=== PATIENT | male | born 1935 | race Caucasian/White ===

== ENCOUNTER → 2019-01-09 | Outpatient (CLI) | payer MEDICARE, OTHER ==
[~2019-01-09] MED LIST: ADV500 IH; ALLO100T PO; AREDS EYE VITAMIN PO; ASPI-555 PO; CALC600T12 PO; FISH1CAP49 PO; FLUT16H NS; FURO20TA4 PO; METO-391 PO; MONT10TA24 PO; PRAV40TA3 PO; TERA5CAP4 PO; TIMO5DRO7 OP; WARF4TAB72 PO; [UNRECOGNIZED DRUG - CODE] PO
== END | disposition home or self-care (01) ==
LOC: SHCH 08:42
PROVIDERS: ATTEND Internal Medicine Cardiovascular Disease
DX: I08.3 Combined rheumatic disorders of mitral, aortic and tricuspid valves (principal); I48.2 Chronic atrial fibrillation; Z95.0 Presence of cardiac pacemaker
CPT/HCPCS: 93306

== ENCOUNTER → 2019-01-17 | Outpatient (CLI) | payer MEDICARE, OTHER | END | disposition home or self-care (01) | LOC: SHCH 08:27 | PROVIDERS: ATTEND Internal Medicine Cardiovascular Disease | DX: I87.2 Venous insufficiency (chronic) (peripheral) (principal) | CPT/HCPCS: 93970 ==

== ENCOUNTER → 2019-02-17 | Outpatient (CLI) | payer MEDICARE, OTHER | END | disposition home or self-care (01) | LOC: SHCH 13:19 | PROVIDERS: ATTEND Internal Medicine Cardiovascular Disease | DX: I82.812 Embolism and thrombosis of superficial veins of left lower extremity (principal) | CPT/HCPCS: 93971 ==

== ENCOUNTER → 2019-03-24 | Outpatient (CLI) | payer MEDICARE | END | disposition home or self-care (01) | LOC: RAH 13:01 | PROVIDERS: ATTEND Urology | DX: N28.1 Cyst of kidney, acquired (principal); N28.89 Other specified disorders of kidney and ureter | CPT/HCPCS: 76770 ==

== ENCOUNTER → 2019-05-19 | Outpatient (CLI) | payer MEDICARE | END | disposition home or self-care (01) | LOC: RAH 10:07 | PROVIDERS: ATTEND Urology | DX: N20.0 Calculus of kidney (principal); K80.20 Calculus of gallbladder without cholecystitis without obstruction; N28.1 Cyst of kidney, acquired; M51.36 Other intervertebral disc degeneration, lumbar region | CPT/HCPCS: 74176 ==

== ENCOUNTER 2019-07-29 19:33 | Inpatient (IN) | payer MEDICARE ==
[~2019-07-29] VITALS: Ht 188 cm; Wt 140.6 kg
[2019-07-29 20:04] LABS: BASOPHILS % (AUTO) 1.4 % (0.0-5.0); EOSINOPHILS % (AUTO) 4.8 % (0.0-8.0); HEMATOCRIT 21.5 % (42-54); LYMPHOCYTES % (AUTO) 22.8 % (21.0-51.0); MEAN CORPUSCULAR HEMOGLOBIN 25.4 pg (27.0-33.0); MEAN CORPUSCULAR VOLUME 79.2 fL (79-99); MONOCYTES % (AUTO) 10.6 % (3.0-13.0); NEUTROPHILS % (AUTO) 60.4 % (40.0-77.0); NUCLEATED RED BLOOD CELLS 0.1 % (0.0-0.19); PLATELET COUNT (AUTO) 199 K/uL (130-400); RED BLOOD CELL COUNT(AUTO) 2.71 MIL/uL (4.50-6.20); RED CELL DISTRIBUTION WIDTH 17.4 % (11.0-15.5); WHITE BLOOD COUNT (AUTO) 4.2 K/uL (4.8-10.8)
[2019-07-29 20:15] LABS: CREATININE 2.3 mg/dL (0.5-1.5); POTASSIUM 4.4 mmol/L (3.5-5.1)
[2019-07-29 20:19] LABS: BILIRUBIN,DIRECT 0.1 mg/dL (0.0-0.3); BILIRUBIN,TOTAL 0.5 mg/dL (0.2-1.0); TOTAL PROTEIN, SERUM 6.5 g/dL (6.0-8.3)
[2019-07-29 20:26] LABS: APPEARANCE,URINE Cloudy (CLEAR); BILIRUBIN,URINE Negative (NEGATIVE); COLOR,URINE Yellow (YELLOW); GLUCOSE, URINE (UA) Negative (NEGATIVE); KETONES,URINE Negative (NEGATIVE); LEUKOCYTE ESTERASE ,URINE Large (NEGATIVE); NITRATE,URINE Positive (NEGATIVE); OCCULT BLOOD,URINE Moderate (NEGATIVE); PH,URINE 5.5 (5.0-8.0); PROTEIN,URINE Negative (NEGATIVE); UROBILINOGEN,URINE 0.2 mg/dL (0.2-1.0)
[2019-07-29 20:27] LABS: INR 1.82 (0.85-1.15); PARTIAL THROMBOPLASTIN TIME 31.6 SEC (26.3-35.5); PROTHROMBIN TIME 18.7 SEC (9.6-11.6)
[2019-07-29 20:30] LABS: B-TYPE NATRIURETIC PEPTIDE 132 pg/mL (0-100)
[2019-07-29 20:33] LABS: BACTERIA,URINE Few /HPF (None Seen); WBC,URINE 26-50 /HPF (0-1)
[2019-07-29 20:34] LABS: SQUAMOUS EPITHELIAL CELL,UR Few /HPF (0-2)
[2019-07-29] MEDS: CEFTRIAXONE SODIUM 1 GM IVP SCH (21:30)
[2019-07-29] MEDS: SODIUM CHLORIDE 0.9% 1000ML 1,000 ML IV SCH (21:30)
[2019-07-29] MEDS: PANTOPRAZOLE 40 MG/VIAL IVP SCH (21:30)
[2019-07-30] VITALS (18 sets, daily range): BP systolic 94–169; BP diastolic 50–77
[2019-07-30] MEDS ORDERED: SODIUM CHLORIDE 0.9% 1000ML 1,000 ML IV ONE (00:53)
[2019-07-30] MEDS ORDERED: CEFTRIAXONE SODIUM 1 GM ONE (00:54)
[2019-07-30] MEDS ORDERED: SODIUM CHLORIDE 0.9% 250 ML IV ONE ×2 (03:31→09:34)
[2019-07-30] MEDS ORDERED: DOXA8TAB81 PO (05:25)
[2019-07-30 07:38] LABS: BASOPHILS % (AUTO) 2.8 % (0.0-5.0); EOSINOPHILS % (AUTO) 5.7 % (0.0-8.0); HEMATOCRIT 23.7 % (42-54); LYMPHOCYTES % (AUTO) 22.7 % (21.0-51.0); MEAN CORPUSCULAR HEMOGLOBIN 25.4 pg (27.0-33.0); MEAN CORPUSCULAR HGB CONC 31.8 g/dL (32.0-36.0); MEAN CORPUSCULAR VOLUME 79.8 fL (79-99); MONOCYTES % (AUTO) 12.5 % (3.0-13.0); NEUTROPHILS % (AUTO) 56.3 % (40.0-77.0); PLATELET COUNT (AUTO) 201 K/uL (130-400); RED BLOOD CELL COUNT(AUTO) 2.97 MIL/uL (4.50-6.20); RED CELL DISTRIBUTION WIDTH 17.5 % (11.0-15.5)
[2019-07-30 07:54] LABS: ALBUMIN 2.9 g/dL (3.5-5.0); BILIRUBIN,TOTAL 0.6 mg/dL (0.2-1.0); POTASSIUM 4.2 mmol/L (3.5-5.1); TOTAL PROTEIN, SERUM 6.4 g/dL (6.0-8.3)
--- NOTE | 2019-07-30 08:22 | NUR ---
Dr. Romano made aware of Hgb: 7.5, post 1unit of PRBC. Stated to give patient 2units of FFP, and schedule for EGD later today.
[2019-07-30] MEDS ORDERED: FLU VACC QS2019-20 36MOS UP/PF 60 MCG/0.5 ML ML IM ONE (09:00)
[2019-07-30] MEDS ORDERED: PNEUMOCOCCAL VACCINE POLYVALENT 0.5 ML/VIAL [PPV] IM ONE (09:00)
[2019-07-30] MEDS ORDERED: FLU VACC QS2019-20 36MOS UP/PF 60 MCG/0.5 ML ML IM SCH (09:00)
[2019-07-30] MEDS: PANTOPRAZOLE 40 MG/VIAL IVP SCH ×2 (10:19→21:39)
[2019-07-30] MEDS ORDERED: PNEUMOCOCCAL VACCINE POLYVALENT 0.5 ML/VIAL [PPV] IM SCH (11:00)
--- NOTE | 2019-07-30 11:30 | NUR ---
TRANSFER PT RECEIVED FROM ICU RM 208. TRANSFERRED BY CN & PCP. TOLERATED TRANSFER WELL. SPOUSE @ BEDSIDE. A/O X 3. NO SOB. NO DISTRESS NOTED. O2 NC @ 3L. DENIES CHEST PAIN OR DISCOMFORT. DENIES PALPITATIONS. TELE: PACED. DENIES N/V AND/OR DIARRHEA. DIET ORDERED. EGD RESCHEDULED FOR TOMORROW. CARDIA CLEARANCE FOR EGD GIVEN BY DR RICKY YEAGER. ORIENTED TO . INSTRUCTED TO CALL FOR ASSISTANCE. CALL MALENA W/IN REACH.
--- NOTE | 2019-07-30 12:46 | NUR ---
DC PLAN VISITED WITH PATIENT. PATIENT LIVES WITH SPOUSE. INDEPENDENT ABLE TO PERFORM ADL'S. PATIENT HAS NO SERVICES. PATIENT HAS A WALKER, GAYATRI, 02. FEELS SAFE TO RETURN HOME. Addendum: 07/30/19 at 1302 by JESÚS COUGHLIN RN CM Amended: Links added.
[2019-07-30] MEDS: CEFTRIAXONE SODIUM 1 GM IVP SCH (21:00)
[2019-07-30 21:27] LABS: HEMATOCRIT 21.4 % (42-54)
[2019-07-31] VITALS (19 sets, daily range): BP systolic 94–150; BP diastolic 51–84
[2019-07-31 04:26] LABS: BASOPHILS % (AUTO) 1.1 % (0.0-5.0); EOSINOPHILS % (AUTO) 4.8 % (0.0-8.0); HEMATOCRIT 24.3 % (42-54); LYMPHOCYTES % (AUTO) 20.4 % (21.0-51.0); MEAN CORPUSCULAR HEMOGLOBIN 25.7 pg (27.0-33.0); MEAN CORPUSCULAR HGB CONC 32.4 g/dL (32.0-36.0); MEAN CORPUSCULAR VOLUME 79.3 fL (79-99); MONOCYTES % (AUTO) 11.9 % (3.0-13.0); NEUTROPHILS % (AUTO) 61.8 % (40.0-77.0); NUCLEATED RED BLOOD CELLS 0.1 % (0.0-0.19); PLATELET COUNT (AUTO) 212 K/uL (130-400); RED BLOOD CELL COUNT(AUTO) 3.07 MIL/uL (4.50-6.20); RED CELL DISTRIBUTION WIDTH 17.5 % (11.0-15.5); WHITE BLOOD COUNT (AUTO) 4.4 K/uL (4.8-10.8)
[2019-07-31 04:38] LABS: INR 1.42 (0.85-1.15); PARTIAL THROMBOPLASTIN TIME 27.4 SEC (26.3-35.5); PROTHROMBIN TIME 14.4 SEC (9.6-11.6)
[2019-07-31 04:46] LABS: CREATININE 2.3 mg/dL (0.5-1.5); POTASSIUM 4.5 mmol/L (3.5-5.1)
--- NOTE | 2019-07-31 07:45 | NUR ---
AM ASSESSMENT PT SITTING IN BED, WATCHING TV. A/O X 3. SOB ON EXERTION. NO DISTRESS NOTED. O2 NC @ 3L. DENIES CHEST PAIN OR DISCOMFORT. DENIES PALPITATIONS. TELE: PACED. DENIES N/V AND/OR DIARRHEA. NPO STATUS REINFORCED. PT TOHAVE EGD BY DR WATTS TODAY. BR W/DIXONP. INSTRUCTED TO CALL FOR ASSISTANCE. CALL MALENA W/IN REACH.
[2019-07-31] MEDS: PANTOPRAZOLE 40 MG/VIAL IVP SCH ×2 (08:24→21:47)
[2019-07-31] MEDS ORDERED: COMPOUND IV MISC 1 EACH IVSOLN MISC PRN (08:45)
[2019-07-31] MEDS: FUROSEMIDE 20 MG TABLET PO SCH (09:00)
[2019-07-31] MEDS ORDERED: IRON SUCROSE COMPLEX 500 MG in SODIUM CHLORIDE 0.9% 50 ML IV SCH (09:00)
[2019-07-31] MEDS ORDERED: FUROSEMIDE 10 MG/ML 2ML VIAL IV SCH (09:00)
[2019-07-31 10:37] LABS: % IRON SATURATION 6.2 % (30-44)
[2019-07-31 10:42] LABS: HEMATOCRIT 25.2 % (42-54)
--- NOTE | 2019-07-31 11:05 | NUR ---
STATUS PT TAKEN TO HAVE EGD VIA BED. TELE JOHN REMOVED.
[2019-07-31] MEDS ORDERED: PROPOFOL 10 MG/ML 20ML VIAL IV ONE (11:27)
[2019-07-31] MEDS ORDERED: EPOETIN ALFA 10,000 UNIT/ML VIAL SQ SCH (12:00)
--- NOTE | 2019-07-31 13:00 | NUR ---
STATUS PT BACK FROM EGD UNDER GENERAL ANESTHESIA. SPOUSE @ BEDSIDE. A/O X 3. NO SOB. NO DISTRESS NOTED. O2 NC @ 3L. V/S WNL. DIET ORDERED. INSTRUCTED TO CALL FOR ASSISTANCE. CALL MALENA W/IN REACH.
[2019-07-31] MEDS: ALLOPURINOL 100 MG TABLET PO SCH ×2 (13:10→21:46)
[2019-07-31] MEDS: TIMOLOL MALEATE 0.5% 5 ML BOTTLE OP SCH ×2 (13:10→21:47)
[2019-07-31] MEDS: ALBUTEROL SULFATE 0.083% 2.5 MG/3 ML INH IH SCH ×3 (13:17→23:45)
[2019-07-31] MEDS: SODIUM CHLORIDE 0.9% 1000ML 1,000 ML IV SCH (13:36)
[2019-07-31 14:45] LABS: HEMATOCRIT 25.1 % (42-54)
[2019-07-31] MEDS: BUDESONIDE 0.5 MG/2 ML INH IH SCH (18:54)
[2019-07-31] MEDS ORDERED: MONTELUKAST SODIUM 10 MG TAB PO SCH (21:00)
[2019-07-31 21:22] LABS: HEMATOCRIT 25.3 % (42-54)
[2019-07-31] MEDS: CEFTRIAXONE SODIUM 1 GM IVP SCH (21:46)
[2019-07-31] MEDS: METOPROLOL TARTRATE 25 MG TAB PO SCH (21:47)
[2019-08-01] VITALS: BP 113/46
[2019-08-01 03:39] VITALS: BP 117/57
[2019-08-01 03:57] LABS: BASOPHILS % (AUTO) 1.2 % (0.0-5.0); EOSINOPHILS % (AUTO) 4.5 % (0.0-8.0); LYMPHOCYTES % (AUTO) 13.7 % (21.0-51.0); MEAN CORPUSCULAR HEMOGLOBIN 26.2 pg (27.0-33.0); MEAN CORPUSCULAR VOLUME 79.4 fL (79-99); NEUTROPHILS % (AUTO) 67.6 % (40.0-77.0); NUCLEATED RED BLOOD CELLS 0.1 % (0.0-0.19); PLATELET COUNT (AUTO) 181 K/uL (130-400); RED BLOOD CELL COUNT(AUTO) 3.15 MIL/uL (4.50-6.20); RED CELL DISTRIBUTION WIDTH 17.2 % (11.0-15.5)
[2019-08-01 04:13] LABS: B-TYPE NATRIURETIC PEPTIDE 137 pg/mL (0-100)
[2019-08-01 04:20] LABS: POTASSIUM 4.4 mmol/L (3.5-5.1)
[2019-08-01] MEDS: ALBUTEROL SULFATE 0.083% 2.5 MG/3 ML INH IH SCH ×2 (06:11→11:38)
[2019-08-01] MEDS: BUDESONIDE 0.5 MG/2 ML INH IH SCH (06:24)
[2019-08-01 08:17] VITALS: BP 117/50
[2019-08-01] MEDS: TIMOLOL MALEATE 0.5% 5 ML BOTTLE OP SCH (09:00)
[2019-08-01 09:24] LABS: HEMATOCRIT 24.7 % (42-54)
[2019-08-01] MEDS: PANTOPRAZOLE 40 MG/VIAL IVP SCH (09:36)
[2019-08-01] MEDS: SODIUM CHLORIDE 0.9% 1000ML 1,000 ML IV SCH (09:36)
[2019-08-01] MEDS: ALLOPURINOL 100 MG TABLET PO SCH (09:37)
[2019-08-01] MEDS: METOPROLOL TARTRATE 25 MG TAB PO SCH (09:37)
[2019-08-01] MEDS: FUROSEMIDE 20 MG TABLET PO SCH (09:37)
[2019-08-01] MEDS ORDERED: IRON SUCROSE COMPLEX 500 MG in SODIUM CHLORIDE 0.9% 250 ML IV SCH ×2 (09:54→10:37)
[2019-08-01] MEDS ORDERED: EPOETIN ALFA 10,000 UNIT/ML VIAL SQ SCH (10:00)
[2019-08-01] MEDS ORDERED: PANT40TA PO (10:01)
[2019-08-01] MEDS ORDERED: APIX2.5T PO (10:11)
[2019-08-01 12:08] VITALS: BP 99/67
--- NOTE | 2019-08-01 13:49 | NUR ---
PATIENT READY FOR DC. REMOVED LEFT IV. GAVE PATIENT DC INSTRUCTIONS AND EDUCATION. PATIENT TAKEN DOWNSTAIRS ON WHEELCHAIR. FAMILY MEMBER TAKING HIM HOME.
[2019-08-01 14:13] LABS: HEMATOCRIT 26.6 % (42-54)
== END 2019-08-01 14:00 | disposition home or self-care (01) | DRG 378 ==
LOC: EDH 19:33 → EDHIP 21:18 → 2BH 07-30 04:30 → 2AH 07-30 11:58
PROVIDERS: ADMIT Internal Medicine; ATTEND Internal Medicine
PROC: 3E02340 Introduction of Influenza Vaccine into Muscle, Percutaneous Approach (ICD-10-PCS; principal; 2019-07-30)
PROC: 3E0234Z Introduction of Serum, Toxoid and Vaccine into Muscle, Percutaneous Approach (ICD-10-PCS; 2019-07-30)
PROC: 30233K1 Transfusion of Nonautologous Frozen Plasma into Peripheral Vein, Percutaneous Approach (ICD-10-PCS; 2019-07-30)
PROC: 30233N1 Transfusion of Nonautologous Red Blood Cells into Peripheral Vein, Percutaneous Approach (ICD-10-PCS; 2019-07-30)
PROC: 0DJ08ZZ Inspection of Upper Intestinal Tract, Via Natural or Artificial Opening Endoscopic (ICD-10-PCS; 2019-07-31)
DX: K25.4 Chronic or unspecified gastric ulcer with hemorrhage (principal); D62 Acute posthemorrhagic anemia; D68.59 Other primary thrombophilia; Z68.41 Body mass index [BMI] 40.0-44.9, adult; N39.0 Urinary tract infection, site not specified; I48.19 Other persistent atrial fibrillation; N18.4 Chronic kidney disease, stage 4 (severe); E66.01 Morbid (severe) obesity due to excess calories; E78.5 Hyperlipidemia, unspecified; I12.9 Hypertensive chronic kidney disease with stage 1 through stage 4 chronic kidney disease, or unspecified chronic kidney disease; I25.10 Atherosclerotic heart disease of native coronary artery without angina pectoris; I25.5 Ischemic cardiomyopathy; I45.10 Unspecified right bundle-branch block; G47.33 Obstructive sleep apnea (adult) (pediatric); I95.9 Hypotension, unspecified; J44.9 Chronic obstructive pulmonary disease, unspecified; K26.9 Duodenal ulcer, unspecified as acute or chronic, without hemorrhage or perforation; Z79.01 Long term (current) use of anticoagulants; Z23 Encounter for immunization; Z87.11 Personal history of peptic ulcer disease; Z95.1 Presence of aortocoronary bypass graft; Z95.5 Presence of coronary angioplasty implant and graft; Z99.81 Dependence on supplemental oxygen
CPT/HCPCS: 36415; 36430; 43235; 71045; 80048; 80053; 80076; 81001; 82270; 82550; 82728; 83540; 83550; 83690; 83880; 84145; 84484; 85014; 85018; 85025; 85610; 85730; 86850; 86900; 86901; 86922; 86927; 87077; 87088; 87186; 90732; 93005; 94640; 94664; C9113; G0378; J0696; J0885; J1756; J1940; J2704; J7030; P9016; P9017; Q2035

== ENCOUNTER → 2019-08-15 | Outpatient (CLI) | payer MEDICARE ==
[~2019-08-15] VITALS: Ht 188 cm; Wt 140.2 kg
[~2019-08-15] MED LIST changes: +APIX2.5T PO; -ASPI-555 PO; +DOXA8TAB81 PO; +PANT40TA PO; +REGADENOSON 0.4 MG/5 ML PF SYG IVP SCH; -TERA5CAP4 PO; -WARF4TAB72 PO
== END | disposition home or self-care (01) ==
LOC: SHCH 11:04
PROVIDERS: ATTEND Internal Medicine Cardiovascular Disease
DX: Z01.810 Encounter for preprocedural cardiovascular examination (principal); R06.00 Dyspnea, unspecified
CPT/HCPCS: 78452; 93017; 96374; A9500 ×2; J2785

== ENCOUNTER 2019-10-20 15:00 | Inpatient (IN) | payer MEDICARE ==
[~2019-10-20] VITALS: Ht 182.9 cm; Wt 134.0 kg
[2019-10-20 12:05] LABS: BASOPHILS % (AUTO) 0.9 % (0.0-5.0); EOSINOPHILS % (AUTO) 2.9 % (0.0-8.0); HEMATOCRIT 33.8 % (42-54); LYMPHOCYTES % (AUTO) 25.8 % (21.0-51.0); MEAN CORPUSCULAR HEMOGLOBIN 26.6 pg (27.0-33.0); MEAN CORPUSCULAR HGB CONC 31.7 g/dL (32.0-36.0); MEAN CORPUSCULAR VOLUME 84.1 fL (79-99); MONOCYTES % (AUTO) 9.4 % (3.0-13.0); NEUTROPHILS % (AUTO) 60.6 % (40.0-77.0); PLATELET COUNT (AUTO) 169 K/uL (130-400); RED BLOOD CELL COUNT(AUTO) 4.02 MIL/uL (4.50-6.20); RED CELL DISTRIBUTION WIDTH 18.4 % (11.0-15.5); WHITE BLOOD COUNT (AUTO) 5.6 K/uL (4.8-10.8)
[2019-10-20 12:11] VITALS: BP 134/66
[2019-10-20 12:18] LABS: INR 1.06 (0.85-1.15); PROTHROMBIN TIME 11.1 SEC (9.6-11.6)
[2019-10-20 12:19] LABS: CREATININE 5.6 mg/dL (0.5-1.5); POTASSIUM 4.4 mmol/L (3.5-5.1)
[2019-10-20 12:20] LABS: APPEARANCE,URINE Clear (CLEAR); BILIRUBIN,URINE Negative (NEGATIVE); COLOR,URINE Yellow (YELLOW); GLUCOSE, URINE (UA) Negative (NEGATIVE); KETONES,URINE Negative (NEGATIVE); LEUKOCYTE ESTERASE ,URINE Large (NEGATIVE); NITRATE,URINE Negative (NEGATIVE); OCCULT BLOOD,URINE Negative (NEGATIVE); PH,URINE 5.5 (5.0-8.0); PROTEIN,URINE Negative (NEGATIVE); UROBILINOGEN,URINE 0.2 mg/dL (0.2-1.0)
[2019-10-20 12:54] LABS: RBC,URINE 0-1 /HPF (0-1)
[2019-10-20 12:55] LABS: BACTERIA,URINE Few /HPF (None Seen); SQUAMOUS EPITHELIAL CELL,UR Rare /HPF (0-2)
[~2019-10-20 15:00] MED LIST changes: +ADV250 IH; -ADV500 IH; -APIX2.5T PO; +APIX5TAB PO; +FINA5TAB41 PO; -FISH1CAP49 PO; +FISH1CAP63 PO; -FLUT16H NS; -MONT10TA24 PO; +MONT10TA26 PO; -REGADENOSON 0.4 MG/5 ML PF SYG IVP SCH; -TIMO5DRO7 OP; +TIMO5DRO7 OU; +VITAMIN D3 PO; -[UNRECOGNIZED DRUG - CODE] PO
--- NOTE | 2019-10-21 17:02 | NUR ---
REPORTED ABNORMAL URINE AND CREATINE/ BUN LABS TO , ORDERS TO GIVE PT LEVOFLOXACIN 500MG IVPB IN HOLDING AREA. OK TO PROCEED.
[2019-10-22] VITALS (24 sets, daily range): BP systolic 113–148; BP diastolic 63–94
[2019-10-22] MEDS: CEFAZOLIN SODIUM 1 GM VIAL IVP SCH ×2 (05:00→13:00)
[2019-10-22] MEDS ORDERED: LEVOFLOXACIN 500 MG/D5W 100 ML 100 ML IV SCH (08:00)
[2019-10-22] MEDS ORDERED: LACTATED RINGERS 1000ML 1,000 ML IV ONE (08:27)
[2019-10-22] MEDS: VANCOMYCIN 1GM+NS 250ML 250 ML IV SCH ×3 (08:45→22:44)
--- NOTE | 2019-10-22 08:55 | NUR ---
SKIN PT STATES HAD FALL 2 WEEKS AGO HAS SCABS TO RIGHT KNEE, BRUSING TO DADA UPPER ARMS. NO OPEN AREAS NOTED Addendum: 10/22/19 at 0856 by JOSH ANDUJAR RN Amended: Links added.
[2019-10-22] MEDS ORDERED: ACETAMINOPHEN EXTRA STRENGTH 500 MG TABLET ONE (11:12)
[2019-10-22] MEDS ORDERED: OXYCODONE HCL 10 MG TAB.SR.12H PO ONE (11:13)
[2019-10-22] MEDS ORDERED: CELECOXIB 200 MG CAP ONE ×2 (11:13→11:18)
[2019-10-22] MEDS ORDERED: KETOROLAC TROMETHAMINE 15MG/ML ONE (11:13)
[2019-10-22] MEDS ORDERED: ROCURONIUM 10MG/1ML SYR 10 MG/ML ML ONE ×2 (12:31→13:11)
[2019-10-22] MEDS ORDERED: PROPOFOL 10 MG/ML 20ML VIAL IV ONE (12:31)
[2019-10-22] MEDS ORDERED: LIDOCAINE PF 2% 5ML ABBOJECT ONE ×2 (12:31→16:22)
[2019-10-22] MEDS ORDERED: MIDAZOLAM HCL 1 MG/ML 2ML VIAL ONE (12:31)
[2019-10-22] MEDS ORDERED: FENTANYL CITRATE PF 50 MCG/1 ML 5ML AMP IV ONE (12:31)
[2019-10-22] MEDS ORDERED: EPHEDRINE SULFATE 50 MG/ML AMPULE ONE (13:15)
[2019-10-22] MEDS ORDERED: HETASTARCH IN 0.9 % NACL 500 ML IV ONE (13:36)
[2019-10-22] MEDS ORDERED: ONDANSETRON HCL 4 MG/2 ML VIAL ONE (13:53)
[2019-10-22] MEDS ORDERED: DEXAMETHASONE SOD PHOSPHATE 10MG/ML 1ML VIAL ONE (13:53)
[2019-10-22] MEDS: VANCOMYCIN HCL 1 GM VIAL ONE ×2 (15:40→15:43)
[2019-10-22] MEDS ORDERED: NEOSTIGMINE 5MG/5ML SYR IV ONE (16:04)
[2019-10-22] MEDS ORDERED: GLYCOPYRROLATE 1 MG/5 ML SYRINGE ONE (16:04)
[2019-10-22] MEDS ORDERED: KETOROLAC TROMETHAMINE 30MG/ML ONE (16:04)
[2019-10-22] MEDS ORDERED: SODIUM CHLORIDE 0.9% 1000ML 1,000 ML IV SCH (16:13)
[2019-10-22] MEDS ORDERED: FE FUMARATE/FA/MV, MIN COMB#15 1 TAB PO PRN (16:15)
[2019-10-22] MEDS ORDERED: POTASSIUM CHLORIDE 10% ELIXIR 20 MEQ/15 ML UDCUP PO PRN (16:15)
[2019-10-22] MEDS ORDERED: TEMAZEPAM 15 MG CAPSULE PO PRN (16:15)
[2019-10-22] MEDS ORDERED: POTASSIUM CHLORIDE 20MEQ/100ML 100 ML IV PRN (16:15)
[2019-10-22] MEDS ORDERED: POTASSIUM CHLORIDE 20 MEQ ERTAB PO PRN (16:15)
[2019-10-22] MEDS: ACETAMINOPHEN EXTRA STRENGTH 500 MG TABLET PO SCH (16:15)
[2019-10-22] MEDS ORDERED: OXYCODONE HCL 5 MG TAB PO PRN ×2 (16:15)
[2019-10-22] MEDS ORDERED: CALCIUM CARBONATE 500 MG TABLET PO PRN (16:15)
[2019-10-22] MEDS ORDERED: DiphenhydrAMINE HCL 50 MG/ML VIAL IVP PRN (16:15)
[2019-10-22] MEDS ORDERED: LIDOCAINE HCL-MPF 1% 2ML VIAL IV PRN (16:15)
[2019-10-22] MEDS: ONDANSETRON HCL 4 MG/2 ML VIAL IVP PRN ×2 (16:55→17:38)
[2019-10-22] MEDS ORDERED: PHARMACY COMMUNICATION MISC SCH ×2 (17:00→18:30)
[2019-10-22] MEDS ORDERED: METOCLOPRAMIDE 10 MG/2 ML VIAL ONE (17:36)
[2019-10-22] MEDS: TRAMADOL HCL 50 MG TABLET PO PRN (18:06)
[2019-10-22] MEDS ORDERED: COMPOUND IV REFRIGERATED 1 EACH IVSOLN MISC PRN (18:45)
--- NOTE | 2019-10-22 20:21 | NUR ---
RT CALLED FOR IS
[2019-10-22] MEDS: CEFAZOLIN 3GM /D5W 100ML 100 ML IV SCH (20:22)
[2019-10-22] MEDS: FISH OIL 1000 MG/CAP PO SCH (20:23)
[2019-10-22] MEDS: CELECOXIB 200 MG CAP PO SCH (20:23)
[2019-10-22] MEDS: PANTOPRAZOLE SODIUM 40 MG TABLET.DR PO SCH (20:23)
[2019-10-22] MEDS: DOXAZOSIN MESYLATE 2 MG TABLET PO SCH (20:23)
[2019-10-22] MEDS: CALCIUM CARBONATE 500 MG TABLET PO SCH (20:24)
[2019-10-22] MEDS: PREGABALIN 25 MG CAP PO SCH (20:24)
[2019-10-22] MEDS: SIMVASTATIN 20 MG TABLET PO SCH (20:24)
[2019-10-22] MEDS: ALLOPURINOL 100 MG TABLET PO SCH (20:24)
[2019-10-22] MEDS: TIMOLOL MALEATE 0.5% 5 ML BOTTLE OU SCH (20:27)
[2019-10-22] MEDS ORDERED: APIXABAN 5 MG TABLET PO SCH (21:00)
[2019-10-23] MEDS: ACETAMINOPHEN EXTRA STRENGTH 500 MG TABLET PO SCH ×3 (00:15→17:02)
--- NOTE | 2019-10-23 01:30 | NUR ---
BLADDER SCAN SHOWED 642 CC PT DOES NOT WANT TO GET UP , NOR STAND UP AND DANGLE HIS FEET , OR TRY TO VOID STANDING UP REFUSED 5 TIMES. TRIED A INDONESIAN CONNOLLY SIZE 16 REGULAR SILICONE TIP UNSUCCESSFUL. RESISTANCE AT THE TIP OF THE SHAFT OF THE PENIS. A COUDE CATHETER TIP SIZE 12 WAS THEN INSERTED PER MD STANDING ORDERS SINCE PT HAD NO URGE TO VOID, AND BLADDER WAS DISTENDED/ WITH 642 CC OF VOLUME. PT TOLERATED PROCEDURE WELL. DRAINED 700 CC OF YELLOW URINE.
[2019-10-23 03:39] VITALS: BP 113/69
[2019-10-23 04:04] LABS: HEMATOCRIT 27.9 % (42-54); MEAN CORPUSCULAR HEMOGLOBIN 26.9 pg (27.0-33.0); MEAN CORPUSCULAR HGB CONC 32.3 g/dL (32.0-36.0); MEAN CORPUSCULAR VOLUME 83.3 fL (79-99); PLATELET COUNT (AUTO) 127 K/uL (130-400); RED BLOOD CELL COUNT(AUTO) 3.35 MIL/uL (4.50-6.20); RED CELL DISTRIBUTION WIDTH 17.9 % (11.0-15.5); WHITE BLOOD COUNT (AUTO) 7.4 K/uL (4.8-10.8)
[2019-10-23 04:16] LABS: CREATININE 2.2 mg/dL (0.5-1.5); POTASSIUM 4.8 mmol/L (3.5-5.1)
[2019-10-23] MEDS: CEFAZOLIN 3GM /D5W 100ML 100 ML IV SCH (06:22)
[2019-10-23 07:47] VITALS: BP 118/71
[2019-10-23] MEDS: TRAMADOL HCL 50 MG TABLET PO PRN (07:55)
--- NOTE | 2019-10-23 08:56 | NUR ---
DCP CM met with pt discussed dc plans. Pt is independent prior to surgery, lives at home w/spouse. Pt has a standard walker, cane, shower chair, cpap, O2 uses at night only, nebulizer machine. Denies any other equipments/services. Feels safe to go back home, spouse able to assist with transportation and needs as necessary. Agreeable for home w/HH, [place] signed for [facility]. DC plan to home w/HH. CM to cont to follow up. Addendum: 10/23/19 at 0859 by JESSICA VO LVN CM Amended: Links added.
--- NOTE | 2019-10-23 08:59 | NUR ---
CM Note: [facility] pending approval Faxed order, clinicals to [facility], confirmation received. Pt pending approval. Primary nurse aware. CM to cont to follow up.
[2019-10-23] MEDS: AREDS EYE VITAMIN PO SCH ×2 (09:00→21:00)
[2019-10-23] MEDS: CELECOXIB 200 MG CAP PO SCH (09:00)
[2019-10-23] MEDS: FISH OIL 1000 MG/CAP PO SCH ×2 (09:00→21:07)
[2019-10-23] MEDS: ADVAIR 250-50 DISKUS IH SCH ×2 (09:00→21:00)
[2019-10-23] MEDS ORDERED: METOPROLOL SUCCINATE 50 MG TAB.SR.24H PO SCH (09:00)
[2019-10-23] MEDS: MONTELUKAST SODIUM 10 MG TAB PO SCH (09:00)
[2019-10-23] MEDS: TIMOLOL MALEATE 0.5% 5 ML BOTTLE OU SCH ×2 (09:00→21:00)
[2019-10-23] MEDS: CALCIUM CARBONATE 500 MG TABLET PO SCH ×2 (09:01→21:08)
[2019-10-23] MEDS: PANTOPRAZOLE SODIUM 40 MG TABLET.DR PO SCH ×2 (09:01→21:08)
[2019-10-23] MEDS: APIXABAN 2.5 MG TABLET PO SCH ×2 (09:01→21:07)
[2019-10-23] MEDS: PREGABALIN 25 MG CAP PO SCH ×2 (09:01→21:08)
[2019-10-23] MEDS: FUROSEMIDE 20 MG TABLET PO SCH (09:02)
[2019-10-23] MEDS: FINASTERIDE 5 MG TABLET PO SCH (09:02)
[2019-10-23] MEDS: ALLOPURINOL 100 MG TABLET PO SCH ×2 (09:02→21:07)
[2019-10-23] MEDS: POLYETHYLENE GLYCOL 3350 17 GM POWD.PACK PO SCH (09:05)
[2019-10-23] MEDS: VANCOMYCIN 1GM+NS 250ML 250 ML IV SCH (09:33)
--- NOTE | 2019-10-23 10:38 | NUR ---
CM Note: [facility] approval CM spoke to Hali reeves/[facility], pt has approval, will see pt tomorrow if pt dc today. Dr Miranda made aware. Primary nurse aware. CM to cont to follow up.
[2019-10-23 10:53] VITALS: BP 116/76
--- NOTE | 2019-10-23 15:03 | NUR ---
[id number] patient signed IM Letter,faxed IM Letter to [phone] and placed in chart under consent tab.
[2019-10-23 15:47] VITALS: BP 101/70
[2019-10-23 19:22] VITALS: BP 111/65
--- NOTE | 2019-10-23 19:38 | NUR ---
CANCEL UROLOGY CONSULT INFORMED DR CERVANTES THAT PATIENT VOIDED A TOTAL OF [address] CERVANTES ORDERED TO CANCEL THE CONSULT FOR DR CHAUDHARI. PAGED DR CHAUDHARI. WAITING CHILD CARE CENTRE MANAGER BACK.
[2019-10-23] MEDS: DOXAZOSIN MESYLATE 2 MG TABLET PO SCH (21:00)
[2019-10-23] MEDS: SIMVASTATIN 20 MG TABLET PO SCH (21:07)
[2019-10-23 23:31] VITALS: BP 93/57
[2019-10-24] MEDS: ACETAMINOPHEN EXTRA STRENGTH 500 MG TABLET PO SCH ×2 (00:15→08:22)
[2019-10-24 03:41] VITALS: BP 106/50
[2019-10-24 03:56] LABS: HEMATOCRIT 24.5 % (42-54); MEAN CORPUSCULAR HEMOGLOBIN 27.4 pg (27.0-33.0); MEAN CORPUSCULAR HGB CONC 33.1 g/dL (32.0-36.0); MEAN CORPUSCULAR VOLUME 82.8 fL (79-99); PLATELET COUNT (AUTO) 137 K/uL (130-400); RED BLOOD CELL COUNT(AUTO) 2.96 MIL/uL (4.50-6.20); WHITE BLOOD COUNT (AUTO) 7.6 K/uL (4.8-10.8)
[2019-10-24 04:07] LABS: CREATININE 2.1 mg/dL (0.5-1.5); PHOSPHORUS 3.1 mg/dL (2.5-4.9); POTASSIUM 4.5 mmol/L (3.5-5.1)
[2019-10-24 04:20] LABS: BAND NEUTROPHILS % (MANUAL) 6 % (0-2); LYMPHOCYTES % (MANUAL) 8 % (22-44); MAN.DIFF COMMENT-IMPRESSION MANUAL DIFFERENTIAL; MONOCYTES % (MANUAL) 4 % (2-9); PLATELET MORPHOLOGY COMMENT ADEQUATE; SEGMENTED NEUTROPHILS % 82 % (40-70)
[2019-10-24 08:00] VITALS: BP_SYST 112; BP_SYST 136; BP_DIAS 42; BP_DIAS 75
[2019-10-24] MEDS: TIMOLOL MALEATE 0.5% 5 ML BOTTLE OU SCH (09:00)
[2019-10-24] MEDS: ADVAIR 250-50 DISKUS IH SCH (09:00)
[2019-10-24] MEDS: AREDS EYE VITAMIN PO SCH (09:00)
[2019-10-24] MEDS: PREGABALIN 25 MG CAP PO SCH (09:49)
[2019-10-24] MEDS: FINASTERIDE 5 MG TABLET PO SCH (09:49)
[2019-10-24] MEDS: ALLOPURINOL 100 MG TABLET PO SCH (09:49)
[2019-10-24] MEDS: CALCIUM CARBONATE 500 MG TABLET PO SCH (09:50)
[2019-10-24] MEDS: PANTOPRAZOLE SODIUM 40 MG TABLET.DR PO SCH (09:50)
[2019-10-24] MEDS: APIXABAN 2.5 MG TABLET PO SCH (09:50)
[2019-10-24] MEDS: MONTELUKAST SODIUM 10 MG TAB PO SCH (09:50)
[2019-10-24] MEDS: POLYETHYLENE GLYCOL 3350 17 GM POWD.PACK PO SCH (09:50)
[2019-10-24] MEDS: FUROSEMIDE 20 MG TABLET PO SCH (09:50)
[2019-10-24] MEDS: FISH OIL 1000 MG/CAP PO SCH (10:00)
[2019-10-24 11:00] VITALS: BP 92/43
[2019-10-24] MEDS ORDERED: FE F1CAP9 PO (13:49)
[2019-10-24] MEDS ORDERED: HYDR-4457 PO (13:49)
[2019-10-24] MEDS ORDERED: LEVO500T2 PO (13:52)
[2019-10-24 16:00] VITALS: BP 128/96
--- NOTE | 2019-10-24 17:20 | NUR ---
D/C REPORT CALLED TO SKYLAR AT [facility]; PT STATED UNDERSTANDING OF ALL D/C INSTRUCTION ON AFTER CARE FOR A SHOULDER REPLACEMENT INCLUDING--WOUND CARE AND DAILY DRESSING CHANGES W/ GAUZE AND BETADINE TO START AFTER 3 DAYS AND THEN CONT TILL NO MORE DRAINAGE NOTED, SIGNS AND SYMPTOMS OF INFECTION OR OTHER CONCERNS TO WATCH FOR AND REPORT TO MD, ACTIVITY LEVEL AND SLING USE, PAIN CONTROL W/ NORCO, BLOOD THINNER--CONTINUE HOME ELEQUIS, F/U W/ DR CERVANTES ON 11-14-19; DRESSING CHANGED AND GABI DRAIN REMOVED PRIOR TO PT'S D/C --PT HAS A WELL AP[employer]OX. INC. LINE W/ ABSORBABLE SUTURES AND DERMABOND NOTED, NO DRAINAGE OR REDNESS NOTED, SLIGHT GENERALIZED EDEMA TO THE ENTIRE SHOULDER; PT ROBBI. DRESSING CHANGE WELL, CLEAN GAUZE APPLIED W/ MEDIPORE TAPE.
[2019-10-25] MEDS ORDERED: BISACODYL 10 MG SUPP.RECT RC PRN (16:15)
== END 2019-10-24 17:29 | disposition home health service (06) | DRG 483 ==
LOC: EDSTATUS 15:00 → DAHIP 10-22 08:16 → 4AH 10-22 17:32
PROVIDERS: ADMIT Orthopaedic Surgery; ATTEND Orthopaedic Surgery
PROC: 0RRK00Z Replacement of Left Shoulder Joint with Reverse Ball and Socket Synthetic Substitute, Open Approach (ICD-10-PCS; principal; 2019-10-22 12:55)
DX: M75.100 Unspecified rotator cuff tear or rupture of unspecified shoulder, not specified as traumatic (principal); M19.012 Primary osteoarthritis, left shoulder; R33.8 Other retention of urine; N99.89 Other postprocedural complications and disorders of genitourinary system; Y83.8 Other surgical procedures as the cause of abnormal reaction of the patient, or of later complication, without mention of misadventure at the time of the procedure
CPT/HCPCS: 36415; 73030; 80048; 81001; 84100; 85025; 85027; 85610; 86850; 86900; 86901; 86922; 87641; 88304; 88311; 96360; 97039; A4344; G0378; J0690; J1100; J1885; J1956; J2001; J2250; J2405; J2704; J2710; J2765; J3010; J3370; J3490; J7030; J7120

== ENCOUNTER → 2022-04-18 | Outpatient (CLI) | payer MEDICARE ==
[~2022-04-18] MED LIST changes: -ALLO100T PO; -APIX5TAB PO; -AREDS EYE VITAMIN PO; -CALC600T12 PO; -DOXA8TAB81 PO; +FE F1CAP9 PO; -FURO20TA4 PO; +HYDR-4457 PO; -METO-391 PO; -MONT10TA26 PO; -PANT40TA PO; -PRAV40TA3 PO; -TIMO5DRO7 OU
== END | disposition home or self-care (01) ==
LOC: RAH 13:11
PROVIDERS: ATTEND Internal Medicine Cardiovascular Disease
DX: I08.3 Combined rheumatic disorders of mitral, aortic and tricuspid valves (principal); I27.20 Pulmonary hypertension, unspecified; I48.20 Chronic atrial fibrillation, unspecified; I11.9 Hypertensive heart disease without heart failure; E78.5 Hyperlipidemia, unspecified; E66.9 Obesity, unspecified; J44.9 Chronic obstructive pulmonary disease, unspecified; Z95.1 Presence of aortocoronary bypass graft; Z95.0 Presence of cardiac pacemaker
CPT/HCPCS: 93306

== ENCOUNTER 2022-07-12 09:16 | Inpatient (IN) | payer MEDICARE ==
[~2022-07-12] VITALS: Ht 188 cm; Wt 127.0 kg
[~2022-07-12 09:16] MED LIST changes: +ALLO100T PO; +APIX2.5T PO; +BETA1TAB20 PO; +CALC-1125 PO; +DOXA8TAB81 PO; -FE F1CAP9 PO; +FOLI0.8T2 PO; +FURO20TA4 PO; -HYDR-4457 PO; +LATA7.5D OP; +METO50TA18 PO; +MONT10TA21 PO; +PRAV40TA3 PO; +TIMO1DRO5 OP
[2022-07-12 10:01] LABS: BASOPHILS % (AUTO) 0.4 % (0.0-5.0); EOSINOPHILS % (AUTO) 2.4 % (0.0-8.0); LYMPHOCYTES % (AUTO) 30.9 % (21.0-51.0); MEAN CORPUSCULAR HGB CONC 32.5 g/dL (32.0-36.0); MEAN CORPUSCULAR VOLUME 92.2 fL (79-99); MONOCYTES % (AUTO) 8.4 % (3.0-13.0); NEUTROPHILS % (AUTO) 57.5 % (40.0-77.0); PLATELET COUNT (AUTO) 92 K/uL (130-400); RED BLOOD CELL COUNT(AUTO) 2.17 MIL/uL (4.50-6.20); RED CELL DISTRIBUTION WIDTH 14.8 % (11.0-15.5); WHITE BLOOD COUNT (AUTO) 2.5 K/uL (4.8-10.8)
[2022-07-12 10:09] LABS: CREATININE 3.9 mg/dL (0.5-1.5); POTASSIUM 4.3 mmol/L (3.5-5.1)
[2022-07-12 10:14] LABS: ALBUMIN 2.7 g/dL (3.5-5.0); TOTAL PROTEIN, SERUM 6.2 g/dL (6.0-8.3)
[2022-07-12 10:30] LABS: APPEARANCE,URINE TURBID (CLEAR); BILIRUBIN,URINE NEGATIVE (NEGATIVE); COLOR,URINE YELLOW (YELLOW); GLUCOSE, URINE (UA) NEGATIVE (NEGATIVE); KETONES,URINE NEGATIVE (NEGATIVE); LEUKOCYTE ESTERASE ,URINE LARGE Leu/uL (NEGATIVE); NITRATE,URINE NEGATIVE (NEGATIVE); OCCULT BLOOD,URINE MODERATE (NEGATIVE); PROTEIN,URINE 30 mg/dL (NEGATIVE); UROBILINOGEN,URINE 0.2 mg/dL (0.2-1.0)
[2022-07-12] MEDS ORDERED: 0.9%NACL 1000ML 1,000 ML IV ONE (10:30)
[2022-07-12] MEDS ORDERED: CEFTRIAXONE 1G VIAL IVP SCH (10:30)
[2022-07-12] MEDS: HALOPERIDOL INJ 5 MG/ML VIAL IV SCH (10:41)
[2022-07-12] MEDS ORDERED: ACETAMINOPHEN 325 MG TAB PO PRN ×3 (11:00→15:30)
[2022-07-12] MEDS ORDERED: ONDANSETRON 4MG INJ IVP PRN ×2 (11:00→15:30)
[2022-07-12] MEDS: CEFTRIAXONE 1G VIAL IVP SCH ×2 (11:00→22:25)
[2022-07-12 11:07] LABS: BACTERIA,URINE Many /HPF (None Seen); SQUAMOUS EPITHELIAL CELL,UR Rare /HPF (0-2); WBC,URINE TNTC /HPF (0-1)
[2022-07-12] MEDS: 0.9%NACL 1000ML 1,000 ML IV SCH (11:09)
[2022-07-12 11:15] LABS: EOSINOPHILS % (MANUAL) 5 % (1-6); LYMPHOCYTES % (MANUAL) 38 % (22-44); MAN.DIFF COMMENT-IMPRESSION MANUAL DIFFERENTIAL; MONOCYTES % (MANUAL) 6 % (2-9); PLATELET MORPHOLOGY COMMENT DECREASED; SEGMENTED NEUTROPHILS % 51 % (40-70)
[2022-07-12] MEDS ORDERED: ETOMIDATE 20MG VIAL IVP ONE (14:25)
[2022-07-12] MEDS ORDERED: ROCURONIUM BROMIDE 10MG/1ML 5ML VL IV ONE (14:25)
[2022-07-12] MEDS ORDERED: DEXTROSE 50%-WATER 50 ML DISP.SYRIN IV PRN (15:30)
[2022-07-12] MEDS ORDERED: POTASSIUM CHLORIDE 10MEQ/100ML 100 ML IV PRN (15:30)
[2022-07-12] MEDS ORDERED: LIDOCAINE HCL-MPF 1% 2ML VIAL IV PRN (15:30)
[2022-07-12] MEDS ORDERED: GLUCAGON 1MG KIT 1 MG ML IM PRN (15:30)
[2022-07-12] MEDS ORDERED: HEPARIN 5,000 UNIT VIAL SQ SCH (16:00)
[2022-07-12 16:16] LABS: RETICULOCYTE % (AUTO) 3.47 % (0.42-2.23)
[2022-07-12 16:17] LABS: HEMATOCRIT 23.7 % (42-54)
[2022-07-12 16:28] LABS: HEMOGLOBIN A1C 5.3 % (4.0-6.0)
[2022-07-12] MEDS: INSULIN HUMULIN R 100 UNIT/ML 3ML SQ SCH ×2 (16:30→21:00)
[2022-07-12 16:44] LABS: % IRON SATURATION 13.6 % (30-44)
[2022-07-13] MEDS: 0.9%NACL 1000ML 1,000 ML IV SCH ×2 (00:55→11:40)
[2022-07-13] MEDS ORDERED: 0.9% NACL 250ML 250 ML IV SCH (05:00)
[2022-07-13 05:46] LABS: BASOPHILS % (AUTO) 0.6 % (0.0-5.0); EOSINOPHILS % (AUTO) 1.2 % (0.0-8.0); HEMATOCRIT 23.3 % (42-54); LYMPHOCYTES % (AUTO) 12.7 % (21.0-51.0); MEAN CORPUSCULAR HEMOGLOBIN 29.3 pg (27.0-33.0); MEAN CORPUSCULAR HGB CONC 32.6 g/dL (32.0-36.0); MONOCYTES % (AUTO) 7.1 % (3.0-13.0); NEUTROPHILS % (AUTO) 77.8 % (40.0-77.0); NUCLEATED RED BLOOD CELLS 0.6 % (0.0-0.19); PLATELET COUNT (AUTO) 85 K/uL (130-400); RED BLOOD CELL COUNT(AUTO) 2.59 MIL/uL (4.50-6.20); WHITE BLOOD COUNT (AUTO) 3.4 K/uL (4.8-10.8)
[2022-07-13 06:08] LABS: CREATININE 3.7 mg/dL (0.5-1.5)
[2022-07-13 06:13] LABS: ALBUMIN 2.7 g/dL (3.5-5.0); CRP QUANTITATIVE 11.7 mg/L (0.00-9.0); TOTAL PROTEIN, SERUM 6.1 g/dL (6.0-8.3)
[2022-07-13 07:01] LABS: ERYTHROCYTE SEDIMENTATION RATE 22 MM/HR (0-20)
[2022-07-13 07:24] LABS: B-TYPE NATRIURETIC PEPTIDE 126 pg/mL (0-100)
[2022-07-13] MEDS: INSULIN HUMULIN R 100 UNIT/ML 3ML SQ SCH ×4 (07:30→21:00)
[2022-07-13] MEDS: HALOPERIDOL INJ 5 MG/ML VIAL IV SCH (10:30)
[2022-07-13] MEDS: CEFTRIAXONE 1G VIAL IVP SCH ×2 (11:34→22:13)
[2022-07-13] MEDS: DEXTROSE 5 %-0.45 % NACL 1,000 ML IV SCH (12:22)
[2022-07-13] MEDS ORDERED: EPOETIN ALFA-EPBX (NON-ESRD) 10,000 UNIT/ML VIAL SQ SCH (12:30)
[2022-07-13] MEDS: IRON SUCROSE COMPLEX 100 MG/5 ML VIAL IVP SCH (12:52)
[2022-07-14] MEDS: DEXTROSE 5 %-0.45 % NACL 1,000 ML IV SCH ×2 (01:24→13:59)
[2022-07-14] MEDS: 0.9%NACL 1000ML 1,000 ML IV SCH (02:55)
[2022-07-14] MEDS ORDERED: DILTIAZEM 125 MG IV ONE (04:23)
[2022-07-14] MEDS ORDERED: NS IV ONE (04:23)
[2022-07-14] MEDS ORDERED: FENTANYL 2500MCG+NS 250ML 250 ML IV ONE (04:27)
[2022-07-14] MEDS ORDERED: FENTANYL 2500MCG+NS 250ML IV.SOLN IV SCH (04:30)
[2022-07-14] MEDS ORDERED: MIDAZOLAM 100MG-0.9% NS 100ML 100ML BAG IV ONE (04:30)
[2022-07-14] MEDS ORDERED: PHENYLEPHRINE HCL 10 MG/ML 1ML VIAL IV ONE (04:44)
[2022-07-14] MEDS ORDERED: PHENYLEPHRINE HCL 50 MG in 0.9% NACL 250ML 250 ML IV PRN (05:00)
[2022-07-14] MEDS ORDERED: PHENYLEPHRINE HCL 10 MG in 0.9% NACL 250ML 250 ML IV PRN ×2 (05:00→16:30)
[2022-07-14] MEDS: PHARMACY COMMUNICATION MISC SCH ×8 (05:13→19:30)
[2022-07-14] MEDS ORDERED: PHARMACY COMMUNICATION MISC SCH ×2 (06:30→23:30)
[2022-07-14 06:37] LABS: ABG BASE EXCESS -0.1 mmol/L (-2.0-3.0); ABG HCO3 22.9 mmol/L (21.0-28.0); ABG OXYGEN SATURATION 99.3 % (95.0-99.0); ABG PCO2 30 mmHg (35-48)
[2022-07-14 06:45] LABS: HEMATOCRIT 22.1 % (42-54); MEAN CORPUSCULAR HEMOGLOBIN 29.4 pg (27.0-33.0); MEAN CORPUSCULAR HGB CONC 32.6 g/dL (32.0-36.0); MEAN CORPUSCULAR VOLUME 90.2 fL (79-99); NUCLEATED RED BLOOD CELLS 1.7 % (0.0-0.19); RED BLOOD CELL COUNT(AUTO) 2.45 MIL/uL (4.50-6.20); RED CELL DISTRIBUTION WIDTH 16.4 % (11.0-15.5); WHITE BLOOD COUNT (AUTO) 5.9 K/uL (4.8-10.8)
[2022-07-14 07:07] LABS: CREATININE 4.1 mg/dL (0.5-1.5); POTASSIUM 4.2 mmol/L (3.5-5.1)
[2022-07-14] MEDS: INSULIN HUMULIN R 100 UNIT/ML 3ML SQ SCH ×4 (07:26→20:52)
[2022-07-14] MEDS ORDERED: IRON SUCROSE COMPLEX 100 MG in 0.9%NACL 50ML 50 ML IV SCH (09:00)
[2022-07-14] MEDS: HALOPERIDOL INJ 5 MG/ML VIAL IV SCH (09:09)
[2022-07-14] MEDS: IRON SUCROSE COMPLEX 100 MG/5 ML VIAL IVP SCH (09:25)
[2022-07-14] MEDS ORDERED: CEFTRIAXONE 2GM VIAL IVP SCH (12:30)
[2022-07-14] MEDS ORDERED: VANCOMYCIN PROTOCOL PER PHARMACY IV SCH (12:30)
[2022-07-14] MEDS ORDERED: 0.9% NACL 250ML IV SCH (12:30)
[2022-07-14] MEDS ORDERED: VANCOMYCIN 1G VIAL IVPB SCH (12:30)
[2022-07-14 12:52] LABS: INR 1.18 (0.85-1.15); PROTHROMBIN TIME 12.7 SEC (9.6-11.6)
[2022-07-14 12:53] LABS: PARTIAL THROMBOPLASTIN TIME 39.6 SEC (26.3-35.5)
[2022-07-14] MEDS ORDERED: GLUCAGON 1MG KIT 1 MG ML IM PRN (13:00)
[2022-07-14] MEDS ORDERED: DEXTROSE 50%-WATER 50 ML DISP.SYRIN IV PRN (13:00)
[2022-07-14] MEDS ORDERED: PANTOPRAZOLE 40 MG/VIAL IVP ONE (13:00)
[2022-07-14] MEDS ORDERED: VANCOMYCIN 2GM/500 ML BAG 500 ML IV ONE (13:30)
[2022-07-14] MEDS: CHLORHEXIDINE GLUCONATE 473 ML MOUTHWASH MM SCH ×2 (13:59→18:14)
[2022-07-14] MEDS: MEROPENEM 1 GM VIAL IVP SCH (16:20)
[2022-07-14] MEDS: PANTOPRAZOLE 40 MG/VIAL IVP SCH (20:51)
[2022-07-14] MEDS: ARTIFICIAL TEARS 3.5 GM OINTMENT OU SCH (20:52)
[2022-07-14] MEDS ORDERED: VASOPRESSIN 20 UNITS in 0.9%NACL 100ML 100 ML IV SCH (23:00)
[2022-07-14] MEDS ORDERED: NACL 0.9% IV SCH (23:30)
[2022-07-14] MEDS ORDERED: VASOPRESSIN IV SCH (23:30)
[2022-07-15] MEDS ORDERED: VASOPRESSIN 20 UNITS/ML 1ML VIAL ONE (00:13)
[2022-07-15] MEDS: CHLORHEXIDINE GLUCONATE 473 ML MOUTHWASH MM SCH ×3 (00:35→12:00)
[2022-07-15] MEDS ORDERED: PHENYLEPHRINE HCL 10 MG/ML 1ML VIAL IV ONE ×9 (01:01→09:47)
[2022-07-15] MEDS ORDERED: NOREPINEPHRINE BITARTRATE 1 MG/1 ML ML IV ONE ×9 (02:27→13:49)
[2022-07-15] MEDS ORDERED: NOREPINEPHRIN 4MG/NS 250ML 250 ML IV SCH (02:30)
[2022-07-15] MEDS: DEXTROSE 5 %-0.45 % NACL 1,000 ML IV SCH (04:00)
[2022-07-15] MEDS: MEROPENEM 1 GM VIAL IVP SCH (04:46)
[2022-07-15] MEDS ORDERED: DEXTROSE 50%-WATER 50 ML DISP.SYRIN IV PRN (07:30)
[2022-07-15] MEDS: INSULIN HUMULIN R 100 UNIT/ML 3ML SQ SCH ×2 (07:30→11:30)
[2022-07-15] MEDS ORDERED: GLUCAGON 1MG KIT 1 MG ML IM PRN (07:30)
[2022-07-15 07:36] LABS: ABG BASE EXCESS -11.1 mmol/L (-2.0-3.0); ABG HCO3 15.7 mmol/L (21.0-28.0); ABG OXYGEN SATURATION 95.4 % (95.0-99.0); ABG PCO2 38 mmHg (35-48)
[2022-07-15] MEDS: PANTOPRAZOLE 40 MG/VIAL IVP SCH (10:14)
[2022-07-15] MEDS: IRON SUCROSE COMPLEX 100 MG/5 ML VIAL IVP SCH (10:14)
[2022-07-15] MEDS: ARTIFICIAL TEARS 3.5 GM OINTMENT OU SCH (10:14)
[2022-07-15] MEDS: HALOPERIDOL INJ 5 MG/ML VIAL IV SCH (10:30)
[2022-07-15 13:00] VITALS: BP 82/31
[2022-07-15] MEDS ORDERED: MORPHINE 2 MG SYG IVP PRN (13:30)
[2022-07-15] MEDS ORDERED: LORAZEPAM 2 MG/ML 1 ML VIAL IVP PRN (13:30)
[2022-07-16] MEDS ORDERED: VANCOMYCIN 1G/250ML KIT 250 ML IV SCH (09:00)
== END 2022-07-15 14:26 | DRG 871 ==
LOC: EDBD 09:16 → EDH 09:16 → EDHIP 10:55
PROVIDERS: ADMIT Hospitalist; ATTEND Hospitalist
PROC: 30233N1 Transfusion of Nonautologous Red Blood Cells into Peripheral Vein, Percutaneous Approach (ICD-10-PCS; principal; 2022-07-12)
PROC: 5A1945Z Respiratory Ventilation, 24-96 Consecutive Hours (ICD-10-PCS; 2022-07-14)
PROC: 0BH17EZ Insertion of Endotracheal Airway into Trachea, Via Natural or Artificial Opening (ICD-10-PCS; 2022-07-14)
DX: A41.9 Sepsis, unspecified organism (principal); G93.41 Metabolic encephalopathy; I50.23 Acute on chronic systolic (congestive) heart failure; R65.21 Severe sepsis with septic shock; J96.02 Acute respiratory failure with hypercapnia; J96.01 Acute respiratory failure with hypoxia; J18.9 Pneumonia, unspecified organism; I21.4 Non-ST elevation (NSTEMI) myocardial infarction; D61.818 Other pancytopenia; E11.52 Type 2 diabetes mellitus with diabetic peripheral angiopathy with gangrene; I13.0 Hypertensive heart and chronic kidney disease with heart failure and stage 1 through stage 4 chronic kidney disease, or unspecified chronic kidney disease; N39.0 Urinary tract infection, site not specified; N17.9 Acute kidney failure, unspecified; K92.2 Gastrointestinal hemorrhage, unspecified; J44.0 Chronic obstructive pulmonary disease with (acute) lower respiratory infection; B96.20 Unspecified Escherichia coli [E. coli] as the cause of diseases classified elsewhere; D50.0 Iron deficiency anemia secondary to blood loss (chronic); E11.22 Type 2 diabetes mellitus with diabetic chronic kidney disease; E11.621 Type 2 diabetes mellitus with foot ulcer; E66.01 Morbid (severe) obesity due to excess calories; E78.5 Hyperlipidemia, unspecified; E86.9 Volume depletion, unspecified; Z66 Do not resuscitate; N40.0 Benign prostatic hyperplasia without lower urinary tract symptoms; N18.30 Chronic kidney disease, stage 3 unspecified; L97.519 Non-pressure chronic ulcer of other part of right foot with unspecified severity; Z96.659 Presence of unspecified artificial knee joint; F03.90 Unspecified dementia, unspecified severity, without behavioral disturbance, psychotic disturbance, mood disturbance, and anxiety; I25.10 Atherosclerotic heart disease of native coronary artery without angina pectoris; I27.22 Pulmonary hypertension due to left heart disease; I48.91 Unspecified atrial fibrillation; Z99.81 Dependence on supplemental oxygen; Z95.1 Presence of aortocoronary bypass graft; Z86.73 Personal history of transient ischemic attack (TIA), and cerebral infarction without residual deficits; Z79.01 Long term (current) use of anticoagulants; Z68.35 Body mass index [BMI] 35.0-35.9, adult
CPT/HCPCS: 31500; 36415; 36600; 70450; 71045; 72170; 73620; 80048; 80053; 81001; 82140; 82270; 82435; 82550; 82607; 82728; 82803; 82947; 82948; 83036; 83605; 83874; 83880; 84132; 84145; 84295; 84484; 85014; 85018; 85025; 85027; 85610; 85651; 85730; 86140; 86850; 86900; 86901; 86923; 87040; 87077; 87088; 87186; 93970; 94002; 94003; C9113; G0378; J0696; J1630; J1756; J2185; J2370; J3010; J3490; J7030; J7042; J7050; J7070; P9016